=== PATIENT | female | born 1985 | race Caucasian/White ===

== ENCOUNTER 2016-12-27 11:46 | Emergency (ER) | payer BC, OTHER ==
[2016-12-27 12:01] VITALS: BP 113/74
--- NOTE | 2016-12-27 12:27 | UC ---
Hand/Wrist HPI - HPI Summary HPI Summary: Here with redness and swelling around nail in L 2nd finger. Also has red, sore open areas near 4th fingernail from pt's own god bite 4 days ago. A week ago had cat bite to L 5th finger which got inflamed, pt poked with a needle "had green drainage" and it resolved. Is feeling "like I got hit by a bus," lump in L armpit, achy. - History Of Current Complaint Chief Complaint: UCSkin Stated Complaint: LEFT HAND SKIN COMPLAINT Time Seen by Provider: 12/27/16 12:10 Hx Obtained From: Patient Hx Last Menstrual Period: 12/05/16 ?: No Onset/Duration: Gradual Onset, Lasting Days Severity Initially: Mild Severity Currently: Moderate Character Of Pain: Dull, Aching Associated Signs And Symptoms: Positive: Swelling, Redness - Allergies/Home Medications Allergies/Adverse Reactions: Allergies Allergy/AdvReac Type Severity Reaction Status Date / Time Amoxicillin Allergy Swelling Verified 12/27/16 11:51 Azithromycin [From Zithromax] Allergy Rash Verified 12/27/16 11:51 Clarithromycin [From Biaxin] Allergy Rash Verified 12/27/16 11:51 Clavulanic Acid Allergy Rash Verified 12/27/16 11:51 [From Augmentin] Erythromycin Allergy Rash Verified 12/27/16 11:51 Nystatin Allergy Rash Verified 12/27/16 11:51 Oxycodone Allergy Rash Verified 12/27/16 11:51 Penicillins Allergy Swelling Verified 12/27/16 11:51 latex Allergy Swelling Uncoded 12/27/16 11:51 Home Medications: Home Medications Amitriptyline TAB* [Elavil TAB*] 20 mg PO BEDTIME 12/27/16 [History Confirmed ] PMH/Surg Hx/FS Hx/Imm Hx - Surgical History Surgical History: Yes Surgery Procedure, Year, and Place: Laperscopy 2007, tonsilectomy 1999. Left shoulder decompression arthroscopy--11/2014 - Family History Known Family History: Positive: None - Social History Alcohol Use: Occasionally Substance Use Type: None Substance Use Comment - Amount & Last Used: 2-3 yrs Smoking Status (MU): Former Smoker - Immunization History Most Recent Influenza Vaccination: NONE Most Recent Tetanus Shot: UTD Most Recent Pneumonia Vaccination: N/A Review of Systems Constitutional: Negative Skin: Other - redness, pain Eyes: Negative ENT: Negative Respiratory: Negative Cardiovascular: Negative Gastrointestinal: Negative Genitourinary: Negative Motor: Negative Neurovascular: Negative Musculoskeletal: Negative Neurological: Negative Psychological: Negative All Other Systems Reviewed And Are Negative: Yes Physical Exam Triage Information Reviewed: Yes Appearance: Well-Appearing, No Pain Distress, Well-Nourished Vital Signs: Initial Vital Signs Temp 98 F 12/27/16 11:52 Pulse 77 12/27/16 11:52 Resp 18 12/27/16 11:52 BP 113/74 12/27/16 11:52 Pulse Ox 99 12/27/16 11:52 Vital Signs Reviewed: Yes Eye Exam: Normal Eyes: Positive: Conjunctiva Clear ENT Exam: Normal ENT: Positive: Normal ENT inspection, Hearing grossly normal, Pharynx normal, TMs normal Dental Exam: Normal Neck: Positive: Supple, Nontender, Enlarged Nodes @ - L axillary Respiratory Exam: Normal Respiratory: Positive: Chest non-tender, Lungs clear, Normal breath sounds, No respiratory distress, No accessory muscle use Cardiovascular Exam: Normal Cardiovascular: Positive: RRR, No Murmur Musculoskeletal Exam: Normal Musculoskeletal: Positive: Strength Intact, ROM Intact Neurological Exam: Normal Neurological: Positive: Alert Psychological Exam: Normal Skin Exam: Other - mild inflammation around L 2nd finger nail plate. Healing bite wounds to dorsal L 4th finger surrounded by significant erythema Hand/Wrist Course/Dx - Differential Dx/Diagnosis Provider Diagnoses: L 2nd finger paronychia. L 4th finger dog bite wound with secondary infeciton Discharge - Discharge Plan Condition: Stable Disposition: HOME Prescriptions: DOXYcycline CAP(*) [DOXYcycline 100MG CAP(*)] 100 mg PO BID #14 cap Patient Education Materials: Paronychia (ED), Animal Bite (ED) Referrals: Srinivasan Hearn MD [Primary Care Provider] - Additional Instructions: Do warm soaks with epsom salts for the L hand 4-5 times per day for the next 48 hours. Between the soaks and the antibiotics, I expect you to have significant reduction in redness, swelling, and pain in your index and ring fingers. If you don't or if you have serious worsening at any time (growing redness, streaking up the arm, fever over 100.5F), please return here right away. Swollen lymph nodes from infection can take several days to 2 weeks to go down even after the infection is treated. Do not worry if you can still feel a lump in your armpit for a while.
== END 2016-12-27 12:27 | disposition home or self-care (01) ==
LOC: UCCORT 11:46
DX: L03.012 Cellulitis of left finger (principal); S61.255A Open bite of left ring finger without damage to nail, initial encounter; L08.9 Local infection of the skin and subcutaneous tissue, unspecified; W54.0XXA Bitten by dog, initial encounter; Y93.9 Activity, unspecified; Y92.9 Unspecified place or not applicable; Z88.1 Allergy status to other antibiotic agents; Z88.5 Allergy status to narcotic agent; Z88.0 Allergy status to penicillin; Z87.891 Personal history of nicotine dependence
CPT/HCPCS: 99212; G0463

== ENCOUNTER 2017-05-29 15:30 | Emergency (ER) | payer BC ==
[2017-05-29 15:39] VITALS: BP 128/74
--- NOTE | 2017-05-29 15:55 | UC ---
Lower Extremity/Ankle HPI - HPI Summary HPI Summary: Patient tripped over a tree on her hike yesterday, it swelled immediately, today swelling is decreased, is able to walk but painful - History of Current Complaint Chief Complaint: UCLowerExtremity Stated Complaint: PAUL INJURY Time Seen by Provider: 05/29/17 15:35 Hx Obtained From: Patient Hx Last Menstrual Period: 05/15/17 ?: No Onset/Duration: Sudden Onset, Lasting Hours Severity Initially: Severe Severity Currently: Moderate Aggravating Factor(s): Standing, Ambulation Alleviating Factor(s): Rest Able to Bear Weight: Yes - Allergies/Home Medications Allergies/Adverse Reactions: Allergies Allergy/AdvReac Type Severity Reaction Status Date / Time Amoxicillin Allergy Swelling Verified 05/29/17 15:39 Azithromycin [From Zithromax] Allergy Rash Verified 05/29/17 15:39 Clarithromycin [From Biaxin] Allergy Rash Verified 05/29/17 15:39 Clavulanic Acid Allergy Rash Verified 05/29/17 15:39 [From Augmentin] Erythromycin Allergy Rash Verified 05/29/17 15:39 Nystatin Allergy Rash Verified 05/29/17 15:39 Oxycodone Allergy Rash Verified 05/29/17 15:39 Penicillins Allergy Swelling Verified 05/29/17 15:39 latex Allergy Swelling Uncoded 05/29/17 15:39 PMH/Surg Hx/FS Hx/Imm Hx Previously Healthy: Yes - Surgical History Surgical History: Yes Surgery Procedure, Year, and Place: Laperscopy 2007, tonsilectomy 1999. Left shoulder decompression arthroscopy--11/2014 - Family History Known Family History: Positive: None, Hypertension - Social History Alcohol Use: Occasionally Substance Use Type: None Substance Use Comment - Amount & Last Used: 2-3 yrs Smoking Status (MU): Never Smoked Tobacco - Immunization History Most Recent Influenza Vaccination: no Most Recent Tetanus Shot: UTD Most Recent Pneumonia Vaccination: N/A Review of Systems Constitutional: Negative Skin: Bruising Eyes: Negative ENT: Negative Respiratory: Negative Cardiovascular: Negative Gastrointestinal: Negative Genitourinary: Negative Motor: Negative Neurovascular: Negative Musculoskeletal: Decreased ROM, Edema, Myalgia Neurological: Negative Psychological: Negative Is Patient Immunocompromised?: No All Other Systems Reviewed And Are Negative: Yes Physical Exam Triage Information Reviewed: Yes Appearance: Well-Appearing, Well-Nourished, Pain Distress Vital Signs: Initial Vital Signs Temp 98.5 F 05/29/17 15:34 Pulse 83 05/29/17 15:34 Resp 14 05/29/17 15:34 BP 128/74 05/29/17 15:34 Pulse Ox 99 05/29/17 15:34 Vital Signs Reviewed: Yes Eye Exam: Normal ENT: Positive: Hearing grossly normal, Pharynx normal, TMs normal Dental Exam: Normal Neck exam: Normal Neck: Positive: Supple, Nontender, No Lymphadenopathy Respiratory Exam: Normal Respiratory: Positive: Chest non-tender, Lungs clear, Normal breath sounds Cardiovascular Exam: Normal Cardiovascular: Positive: RRR, No Murmur, Pulses Normal Abdominal Exam: Normal Abdomen Description: Positive: Nontender, No Organomegaly, Soft Bowel Sounds: Positive: Present Musculoskeletal Exam: Normal Musculoskeletal: Positive: Strength Intact, ROM Intact, Edema @ - in the anterior left lower leg Neurological Exam: Normal Neurological: Positive: Alert, Muscle Tone Normal Psychological Exam: Normal Skin: Positive: Other - bruise Lower Extremity Course/Dx - Course Course Of Treatment: hx obtained, exam performed ,meds reviewed, xray obtained, - Differential Dx/Diagnosis Differential Diagnosis/HQI/PQRI: Contusion, Fracture (Closed), Sprain, Strain Provider Diagnoses: contusion left lower leg Discharge - Discharge Plan Condition: Stable Disposition: HOME Patient Education Materials: Contusion in Adults (ED) Additional Instructions: 1. I recommend Rest, Ice Compress ( try the nurse maid compression stocking) and elevate 2. after about 48 hours after injury you can switch to heat. 3. follow up with an large increase in swelling, numbness or tingling of foot or toes. 4. Ibuprofen for swelling and pain.
--- NOTE | 2017-05-29 16:36 | RAD ---
HISTORY: Bruising, swelling and pain, left leg, subacute trauma COMPARISONS: None VIEWS: 2, Frontal and lateral views of the left foreleg FINDINGS: BONE DENSITY: Normal. BONES: There is no displaced fracture. JOINTS: There is no arthropathy. ALIGNMENT: There is no dislocation. SOFT TISSUES: Unremarkable. OTHER FINDINGS: None. IMPRESSION: NO ACUTE OSSEOUS INJURY. IF SYMPTOMS PERSIST, RECOMMEND REPEAT IMAGING.
== END 2017-05-29 16:43 | disposition home or self-care (01) ==
LOC: UCCORT 15:30
DX: S80.12XA Contusion of left lower leg, initial encounter (principal); W01.0XXA Fall on same level from slipping, tripping and stumbling without subsequent striking against object, initial encounter; Y93.01 Activity, walking, marching and hiking; Y92.9 Unspecified place or not applicable; Z88.5 Allergy status to narcotic agent; Z88.0 Allergy status to penicillin; Z88.1 Allergy status to other antibiotic agents; Z91.040 Latex allergy status
CPT/HCPCS: 99212; G0463

== ENCOUNTER 2019-03-02 19:03 | Emergency (ER) | payer BC, OTHER ==
[2019-03-02 19:32] VITALS: BP 105/66
--- NOTE | 2019-03-02 19:51 | UC ---
Shoulder Pain HPI - HPI Summary HPI Summary: Acute onset right shoulder pain swinging a golf club with autistic child. Difficulty raising arm up. No numbness or weakness. - History of Current Complaint Chief Complaint: UCUpperExtremity Stated Complaint: RIGHT SHOULDER INJURY Time Seen by Provider: 03/02/19 19:37 Hx Obtained From: Patient Hx Last Menstrual Period: 02/20/19 ?: No Onset/Duration: Sudden Onset, Lasting Hours - 8 Timing: Constant Severity Initially: Moderate Severity Currently: Mild Location Of Pain: Is Discrete @ - posterior right shoulder and under arm. Pain Intensity: 3 Character: Sharp - with certain movements., Dull, Aching Aggravating Factor(s): Movement, Flexion Alleviating Factor(s): Rest Associated Signs And Symptoms: Positive: Negative - Allergies/Home Medications Allergies/Adverse Reactions: Allergies Allergy/AdvReac Type Severity Reaction Status Date / Time amoxicillin Allergy Intermediate Rash Verified 03/02/19 19:40 azithromycin [From Zithromax] Allergy Intermediate Rash Verified 03/02/19 19:40 clarithromycin [From Biaxin] Allergy Intermediate Rash Verified 03/02/19 19:40 clavulanic acid Allergy Intermediate Rash Verified 03/02/19 19:40 [From Augmentin] erythromycin base Allergy Intermediate Rash Verified 03/02/19 19:40 nystatin Allergy Intermediate Rash Verified 03/02/19 19:40 oxycodone Allergy Intermediate Rash Verified 03/02/19 19:40 red dye Allergy Intermediate Rash Verified 03/02/19 19:40 latex Allergy Severe Swelling Uncoded 03/02/19 19:40 Home Medications: Home Medications buPROPion TAB* [Wellbutrin TAB*] 2 tab PO DAILY 03/02/19 [History Confirmed ] PMH/Surg Hx/FS Hx/Imm Hx Neurological History: Migraine Other Neurological History: PMDD, fibro, narcolepsy Psychological History: Anxiety, Bipolar Disorder - Surgical History Surgical History: Yes Surgery Procedure, Year, and Place: Laperscopy 2007, tonsilectomy 1999. Left shoulder decompression arthroscopy--11/2014. fallopian tubes removed 06/2018 - Family History Known Family History: Positive: Cardiac Disease, Hypertension, Diabetes - Social History Occupation: Employed Full-time Lives: Alone Alcohol Use: Rare Substance Use Type: Other Substance Use Comment - Amount & Last Used: medicinal marijuana Smoking Status (MU): Never Smoked Tobacco - Immunization History Most Recent Influenza Vaccination: no Most Recent Tetanus Shot: UTD Most Recent Pneumonia Vaccination: N/A Review of Systems All Other Systems Reviewed And Are Negative: Yes Skin: Positive: Bruising - easy bruising Musculoskeletal: Positive: Arthralgia - right shoulder Is Patient Immunocompromised?: No Physical Exam Triage Information Reviewed: Yes Appearance: Well-Appearing, No Pain Distress - with arm at side, Well-Nourished Vital Signs: Initial Vital Signs Temp 97.5 F 03/02/19 19:28 Pulse 85 03/02/19 19:28 Resp 16 03/02/19 19:28 BP 105/66 03/02/19 19:28 Pulse Ox 100 03/02/19 19:28 Vital Signs Reviewed: Yes Eyes: Positive: Conjunctiva Clear Respiratory Exam: Normal Cardiovascular Exam: Normal Musculoskeletal: Positive: Strength Limited @ - external rotation and abduction with significant pain., ROM Limited @ - right shoulder flexion/ abduction/ extension., Edema @ Neurological Exam: Normal Psychological Exam: Normal Skin Exam: Normal Shoulder Course/Dx - Differential Dx/Diagnosis Differential Diagnosis/HQI/PQRI: AC Separation, Arthritis, Sprain, Strain Provider Diagnosis: Rotator cuff strain Discharge - Sign-Out/Discharge Documenting (check all that apply): Patient Departure All imaging exams completed and their final reports reviewed: No Studies - Discharge Plan Condition: Stable Disposition: HOME Patient Education Materials: Rotator Cuff Injury (ED) Forms: *Work Release Referrals: Georges Napier PA [Primary Care Provider] - Thierno Miner MD [Medical Doctor] - 2 Days - Billing Disposition and Condition Condition: STABLE Disposition: Home
== END 2019-03-02 20:03 | disposition home or self-care (01) ==
LOC: UCCORT 19:03
DX: S43.421A Sprain of right rotator cuff capsule, initial encounter (principal); X50.0XXA Overexertion from strenuous movement or load, initial encounter; Y93.53 Activity, golf; Y92.9 Unspecified place or not applicable; F41.9 Anxiety disorder, unspecified; F31.9 Bipolar disorder, unspecified
CPT/HCPCS: 99211; G0463

== ENCOUNTER 2019-04-15 16:41 | Emergency (ER) | payer BC ==
[2019-04-15 17:06] VITALS: BP 112/65
[2019-04-15] MEDS ORDERED: Ondansetron ODT TAB* 4 MG PO ONE (17:19)
[2019-04-15] MEDS ORDERED: Ketorolac INJ* 30 MG/ML 1 ML VIAL IM ONE (17:19)
--- NOTE | 2019-04-15 17:28 | UC ---
Headache HPI - HPI Summary HPI Summary: 34 yo female with 4-5 day hx of migraine her typical migraine except that it is uncommon for them to last this long saw here neurologist a week ago states toradol helps has photophobia and n/vomiting - History Of Current Complaint Chief Complaint: UCHeadache Stated Complaint: MIGRAINE Time Seen by Provider: 04/15/19 17:00 Hx Obtained From: Patient Hx Last Menstrual Period: March 11 Onset/Duration: Gradual Onset, Lasting Days Onset Of Symptoms: Gradual Initially Headache Was: Moderate Currently Pain Is: Moderate Pain Intensity: 5 Pain Scale Used: 0-10 Numeric Timing: Constant Character: Throbbing, Typical Headache Location of Headache: Diffuse Aggravating Factor(s): Nothing Allevating Factor(s): Nothing Associated Signs And Symptoms: Positive: Nausea, Vomiting. Negative: Dizziness , Seizure, Sinus Pressure, Fever, Neck Pain, Neck Stiffness, Decreased LOC, Visual Changes Related History: Similar Episode/DX As: - migrain - Allergies/Home Medications Allergies/Adverse Reactions: Allergies Allergy/AdvReac Type Severity Reaction Status Date / Time amoxicillin Allergy Intermediate Rash Verified 04/15/19 17:06 azithromycin [From Zithromax] Allergy Intermediate Rash Verified 04/15/19 17:06 clarithromycin [From Biaxin] Allergy Intermediate Rash Verified 04/15/19 17:06 clavulanic acid Allergy Intermediate Rash Verified 04/15/19 17:06 [From Augmentin] erythromycin base Allergy Intermediate Rash Verified 04/15/19 17:06 nystatin Allergy Intermediate Rash Verified 04/15/19 17:06 oxycodone Allergy Intermediate Rash Verified 04/15/19 17:06 red dye Allergy Intermediate Rash Verified 04/15/19 17:06 latex Allergy Severe Swelling Uncoded 04/15/19 17:06 Home Medications: Home Medications Cranberry 500 mg PO BID 04/15/19 [History Confirmed 04/15/19] Lactobacillus Acidophilus [Acidophilus] 1 each PO DAILY 04/15/19 [History Confirmed 04/15/19] PMH/Surg Hx/FS Hx/Imm Hx Previously Healthy: Yes Neurological History: Migraine Psychological History: Anxiety, Bipolar Disorder, Post Traumatic Stress Disorder - Surgical History Surgical History: Yes Surgery Procedure, Year, and Place: Laperscopy 2007, tonsilectomy 1999. Left shoulder decompression arthroscopy--11/2014. fallopian tubes removed 06/2018 - Family History Known Family History: Positive: Cardiac Disease, Hypertension, Diabetes, Other - strong FHx of migraines - Social History Alcohol Use: Rare Substance Use Type: Other Substance Use Comment - Amount & Last Used: medicinal marijuana-drops, rarely uses Smoking Status (MU): Never Smoked Tobacco - Immunization History Most Recent Influenza Vaccination: no Most Recent Tetanus Shot: UTD Most Recent Pneumonia Vaccination: N/A Review of Systems All Other Systems Reviewed And Are Negative: Yes Constitutional: Positive: Negative Skin: Positive: Negative Eyes: Positive: Photophobia ENT: Positive: Negative Respiratory: Positive: Negative Cardiovascular: Positive: Negative Gastrointestinal: Positive: Vomiting, Nausea Genitourinary: Positive: Negative Motor: Positive: Negative Neurovascular: Positive: Negative Musculoskeletal: Positive: Negative Neurological: Positive: Headache Psychological: Positive: Negative Physical Exam Triage Information Reviewed: Yes Appearance: Well-Appearing, No Pain Distress, Well-Nourished Vital Signs: Initial Vital Signs Temp 97.9 F 04/15/19 17:01 Pulse 78 04/15/19 17:01 Resp 16 04/15/19 17:01 BP 112/65 04/15/19 17:01 Pulse Ox 100 04/15/19 17:01 Vital Signs Reviewed: Yes Eyes: Positive: Conjunctiva Clear, Other: - EOMI/PERRL ENT: Positive: Hearing grossly normal, Uvula midline. Negative: Nasal congestion, Nasal drainage, Tonsillar swelling, Tonsillar exudate, Trismus, Muffled voice, Hoarse voice Neck exam: Normal Neck: Positive: Supple, Nontender, No Lymphadenopathy Respiratory: Positive: Lungs clear, Normal breath sounds, No respiratory distress, No accessory muscle use Cardiovascular: Positive: RRR, No Murmur Musculoskeletal: Positive: ROM Intact, No Edema Neurological: Positive: Alert, Other: - GCC 15/15, cn2-12 intact, strenght 5/5 Psychological Exam: Normal Skin Exam: Normal Headache Course/Dx - Differential Dx/Diagnosis Provider Diagnosis: Migraine Discharge - Sign-Out/Discharge Documenting (check all that apply): Patient Departure All imaging exams completed and their final reports reviewed: No Studies - Discharge Plan Condition: Stable Disposition: HOME Patient Education Materials: Migraine Headache (ED) Referrals: Georges Napier PA [Primary Care Provider] - 3 Days (if not better) - Billing Disposition and Condition Condition: STABLE Disposition: Home
--- OUTSIDE RECORDS SUMMARY | 2019-04-15 18:29 | XMS REPORT | Continuity of Care Document ---
:1985 External Reference #:[id number] Author Name Horacio Ricks Care Team Providers Name Role Phone Anna Mclaughlin MD Primary Care Physician Unavailable Payers Date Identification Numbers Payment Provider Subscriber Policy Number: [id number] [employer] Melinda Teran PayID: [id number] [address] [address] [place] [address] Effective: 2016 Policy Number: [id number] [facility] Melinda Teran Expires: 2018 Group Number: [id number] PayID: [id number] [address] Problems Active Problems Provider Date Low back pain Juan Fairchild M.D. Onset: 08/17/2018 Sleep apnea Juan Fairchild M.D. Onset: 04/25/2018 Bipolar disorder Juan Fairchild M.D. Onset: 04/25/2018 Narcolepsy Juan Fairchild M.D. Onset: 04/25/2018 Chronic intractable migraine without aura Juan Fairchild M.D. Onset: 04/25 Family History Date Family Member(s) Observation Comments General Sleep Disorder General Fibromyalgia General Hypertension General Diabetes Type II General Migraine General Heart Disease General Cancer General Breast Cancer Father Rheumatoid Arthritis Father Osteoarthritis Father Depression Father PTSD Father Fibromyalgia Father anxiety Father DDD Father Eczema Father Diabetes Type II Father thoracic outlet syndrome Father Siblings-fibromyalgia,migraines,depression,panic disorder,autoimmmune Mother Fibromyalgia Mother Hypertension Mother Diabetes Type II Mother Rheumatoid Arthritis Mother Osteoarthritis Mother Psoriasis Mother ezcema First Sister Fibromyalgia First Sister Migraine Paternal Grandmother Breast Cancer Maternal Grandfather Cancer Maternal Grandfather Diabetes Type II Maternal Grandfather Hypertension Maternal Grandmother Diabetes Type II Maternal Grandmother Hypertension Maternal Grandmother Heart Disease Social History Type Date Description Comments Sex Unknown Marital Status Lives With Alone Occupation works in software quality engineer Tobacco Use Start: Unknown Never Smoked Cigarettes ETOH Use Occasionally consumes alcohol Recreational Drug Use Denies Drug Use Tobacco Use Start: Unknown End: Patient is a former Unknown smoker Smoking Status Reviewed: 04/10/19 Patient is a former smoker Exercise Type/Frequency Exercises regularly 2hrs cardio 3 days a week. Hikes once a week. Allergies, Adverse Reactions, Alerts Active Allergies Reaction Severity Comments Date Amoxicillin 03/22/2018 Penicillin 03/22/2018 Augmentin 03/22/2018 Erythromycin 03/22/2018 Zithromax 03/22/2018 Biaxin 03/22/2018 Percocet 03/22/2018 Latex 03/22/2018 Nystatin 03/22/2018 Zantac 03/22/2018 Zyrtec 03/22/2018 Claritin 03/22/2018 Brittany 03/22/2018 FD&C Red 40 Bob Rash 04/25/2018 Can Take Cephalosporins Per PT 04/25/2018 Medications Active Medications SIG Qnty Indications Ordering Provider Date Diclofenac Sodium Apple 4 gram to 100gm M54.5 Juan Fairchild, 08/17/2018 1% affected area 3 M.D. Gel times a day as needed Lamictal 1.5 tabs daily by Unknown 200mg mouth Tablets Wellbutrin SR 1 by mouth every Unknown 150mg day Tablets ER 12HR Xanax 0.25-.5 by mouth Unknown 1mg Tablets up to three times daily as needed for anxiety Green Tea 1 tab by mouth Unknown Tablet daily Excedrin Migraine 2 by mouth daily Unknown [phone] Tablets History Medications Cymbalta 1 by mouth every day Unknown - 04/24/[address] Part Cyclobenzaprine HCL 1 tablet by mouth q8 Unknown - 04/24/2018 10mg Tablets hours as needed muscle spasms Lidoderm 1 apply to affected Unknown - 08/16/2018 5% Patches area 12 hours on, 12 hours off as needed Reglan 1 tablet every 8 Unknown - 04/24/2018 10mg Tablets hours as needed Butalbital/Acetaminophen/Caff take 1 capsule as Unknown - eine needed 50-325-40mg Capsules Elavil 1 tab by mouth every Unknown - 04/09/2019 10mg Tablets night at bedtime, do not drive after taking Progesterone 1 tab by mouth daily Unknown - 08/16/2018 Tablet Voltaren apply 2 grams twice Unknown - 08/16/2018 1% Gel daily as needed for pain to the hands Vitamin B-2 4 tabs daily Unknown - 04/09/2019 50mg Tablets Vital Signs Date Vital Result Comment 04/10/2019 1:15pm Height 67.75 inches 5'7.75" Weight 171.00 lb Heart Rate 80 /min BP Systolic 102 mmHg BP Diastolic 74 mmHg BMI (Body Mass Index) 26.2 kg/m2 08/17/2018 1:47pm Height 67.75 inches 5'7.75" Weight 197.25 lb Heart Rate 76 /min BP Systolic 110 mmHg BP Diastolic 72 mmHg BMI (Body Mass Index) 30.2 kg/m2 04/25/2018 12:56pm Height 67.75 inches 5'7.75" Weight 208.00 lb Heart Rate 77 /min BP Systolic 104 mmHg BP Diastolic 78 mmHg Respiratory Rate 16 /min Pain Level 2 O2 % BldC Oximetry 98 % BMI (Body Mass Index) 31.9 kg/m2 Encounters Type Date Location Provider Dx Diagnosis Office Visit 08/17/2018 [facility] Juan Fairchild G43.719 Chronic migraine 1:45p [facility] w/o aura, intractable, w/o stat migr G47.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 w/o aura, [employer] Service [employer] intractable, w/o stat migr G47.419 Narcolepsy without cataplexy F31.9 Bipolar disorder, unspecified G47.30 Sleep apnea, unspecified Plan of Treatment Future Appointment(s):10/09/2019 8:00 am - Juan Fairchild M.D. at [facility]04/10/2019 - Juan Fairchild M.D.G43.719 Chronic migraine without aura, intractable, without status mFollow up:Follow up in 6 [id number] Narcolepsy without [id number] Bipolar disorder, unspecified
== END 2019-04-15 17:47 | disposition home or self-care (01) ==
LOC: UCCORT 16:41
DX: G43.909 Migraine, unspecified, not intractable, without status migrainosus (principal)
CPT/HCPCS: 96372; 99212; A9270-GY; G0463; J1885